=== PATIENT | male | born 1995 | race African-American/Black ===

== ENCOUNTER 2016-12-04 19:41 | Emergency (ER) | payer SELFPAY ==
[~2016-12-04] VITALS: Ht 175.3 cm; Wt 167.8 kg
[2016-12-04 20:02] VITALS: BP 165/72
== END 2016-12-04 20:54 | disposition home or self-care (01) ==
LOC: ER 19:44
DX: L03.113 Cellulitis of right upper limb (principal)
CPT/HCPCS: 99283; A4606; Z7610

== ENCOUNTER 2016-12-25 14:46 | Emergency (ER) | payer SELFPAY ==
[~2016-12-25] VITALS: Ht 175.3 cm; Wt 172.4 kg
[2016-12-25 14:51] VITALS: BP 152/80
--- NOTE | 2016-12-25 15:29 | NUR ---
AT BEDSIDE FOR EVAL
== END 2016-12-25 16:00 | disposition home or self-care (01) ==
LOC: ER 14:46
DX: L02.511 Cutaneous abscess of right hand (principal); F17.210 Nicotine dependence, cigarettes, uncomplicated
CPT/HCPCS: A4606; A6402; A6403; Z7610